=== PATIENT | female | born 1945 | race Caucasian/White ===

== ENCOUNTER → 2016-10-31 | Outpatient (CLI) | payer MEDICARE, OTHER | LOC: MW.CHFP 08:00 | CPT/HCPCS: G0463 ==

== ENCOUNTER 2016-11-19 09:05 | Emergency (ER) | payer MEDICARE, OTHER ==
[2016-11-19 09:16] VITALS: BP 177/89
[2016-11-19] MEDS ORDERED: Albuterol/Ipratropium 3.0-0.5 MG/3 ML Neb Soln NEB ONE (09:23)
--- NOTE | 2016-11-19 09:24 | EDM.PDOC ---
ED HISTORY OF PRESENT ILLNESS - General Chief Complaint: Respiratory Problem Stated Complaint: COLD Time Seen by Provider: 11/19/16 09:15 - History of Present Illness INITIAL COMMENTS - FREE TEXT/NARRATIVE: HISTORY AND PHYSICAL: History of present illness: The patient is a 73-year-old female who was a new diagnosis of breast cancer and is scheduled to get an MRI at [facility] to evaluate that for treatment and presents with complaints of a persistent cough for one month with "wheezing and congestion". The patient saw her primary care physician in our clinic as well as Dr. Adore Avelar of oncology on Monday and was given cough medicine from the latter provider.. No testing was performed and both providers felt that this was a viral syndrome. The patient states she is very frustrated with the cough is hacking and is not associated with fever chills abdominal pain vomiting or diarrhea. She has no leg pain or swelling and no cardiac or pulmonary history. She does not smoke cigarettes. Patient states she also has nasal congestion and nasal drip which triggers the cough. Patient tells me she would like some "antibiotics so she can get rid of this". Please note that Dr. Adore Avelar did not give her antibiotics on Monday. The patient did get her influenza vaccine this year Review of systems: As per history of present illness and below otherwise all systems reviewed and negative. Past medical history: As per history of present illness and as reviewed below otherwise noncontributory. Surgical history: As per history of present illness and as reviewed below otherwise noncontributory. Social history: No reported history of drug or alcohol abuse. Family history: As per history of present illness and as reviewed below otherwise noncontributory. Physical exam: General: Well-developed well-nourished female who is speaking clearly and not breathless. She does have a hacking dry cough heard in the ER. HEENT: Atraumatic, normocephalic, pupils reactive, negative for conjunctival pallor or scleral icterus, mucous membranes moist, throat clear, neck supple, nontender, trachea midline. Lungs: Clear to auscultation, breath sounds equal bilaterally, chest nontender. No stridor no wheezing no work of breathing with some diminished breath sounds and occasional rhonchi in the bases Heart: S1S2, regular, negative for clicks, rubs, or JVD. Abdomen: Soft, nondistended, nontender. NABS Genitourinary: Deferred. Rectal: Deferred. Extremities: Atraumatic, negative for cords or calf pain. Neurovascular unremarkable. No pedal edema Neuro: Awake, alert, oriented. Cranial nerves II through XII unremarkable. Cerebellum unremarkable. Motor and sensory unremarkable throughout. Exam nonfocal. Diagnostics: Chest x-ray CBC CMP Therapeutics: Duo neb spacer Patient states she feels a little better after the DuoNeb. Patient does tell me that she has a cough medicine at home Dr. Avelar gave her. She is aware of all testing results today and that she has no indication to receive antibiotics but I will give her an albuterol inhaler with a spacer Impression: Bronchitis with bronchospastic cough subacute Definitive disposition and diagnosis as appropriate pending reevaluation and review of above. - Related Data Allergies/ADRs: Allergies Allergy/AdvReac Type Severity Reaction Status Date / Time iodine Allergy Anaphylactic Verified 11/19/16 09:10 Shock lisinopril Allergy Cough Verified 11/19/16 09:10 olmesartan medoxomil Allergy Numbness Verified 11/19/16 09:10 [From Benicar] VOLITILE OILS Allergy Severe Anaphylactic Uncoded 11/19/16 09:10 Shock Home Meds: Home Meds Aspirin [Vanita Chewable] 81 mg PO DAILY 01/05/14 [History] Hydrochlorothiazide 25 mg PO DAILY 01/05/14 [History] amLODIPine/atorvaSTATin [Amlodipine-Atorvast 2.5-10 mg] 1 tab PO DAILY 01/05/14 [History] metFORMIN [metFORMIN XR] 500 mg PO DAILY 01/05/14 [History] Past Medical History HEENT History: Reports: None Cardiovascular History: Reports: Hypertension Respiratory History: Reports: None Gastrointestinal History: Reports: None Genitourinary History: Reports: None 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 Musculoskeletal History: Reports: None Neurological History: Reports: None Psychiatric History: Reports: None Endocrine/Metabolic History: Reports: Diabetes, type II Hematologic History: Reports: None Immunologic History: Reports: None Oncologic (Cancer) History: Reports: Breast Dermatologic History: Reports: None - Infectious Disease History Infectious Disease History: Reports: Chicken pox, Measles, Mumps - Past Surgical History HEENT Surgical History: Reports: Tonsillectomy Female Surgical History: Reports: Hysterectomy Social & Family History - Family History Family Medical History: Noncontributory - Tobacco Use Smoking Status *Q: Never Smoker - Caffeine Use Caffeine Use: Reports: Coffee, Soda - Alcohol Use Days Per Week of Alcohol Use: 0 - Recreational Drug Use Recreational Drug Use: No - Living Situation & Occupation Living situation: Reports: other (patient'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 ED EXAM, GENERAL - Physical Exam Exam: See Below (See dictation) Course - Vital Signs Last Recorded V/S: Last Vital Signs Temp 36.1 C 11/19/16 09:12 Pulse 87 11/19/16 09:12 Resp 18 11/19/16 09:12 BP 177/89 H 11/19/16 09:12 Pulse Ox 96 11/19/16 09:12 - Orders/Labs/Meds Orders: Active Orders 24 hr Category Date Time Status RT Aerosol Therapy [RC] ASDIRECTED Care 11/19/16 09:24 Active Chest 2V [CR] Stat Exams 11/19/16 09:24 Taken Labs: Laboratory Tests 11/19/16 11/19/16 Range/Units 09:37 09:37 WBC 8.12 (4.0-11.0) K/uL RBC 5.05 (4.30-5.90) M/uL Hgb 14.9 (12.0-16.0) g/dL Hct 42.9 (36.0-46.0) % MCV 85.0 (80.0-98.0) fL MCH 29.5 (27.0-32.0) pg MCHC 34.7 (31.0-37.0) g/dL RDW Std Deviation 41.3 (28.0-62.0) fl RDW Coeff of Randall 14 (11.0-15.0) % Plt Count 203 (150-400) K/uL MPV 11.00 (7.40-12.00) fL Neut % (Auto) 58.6 (48.0-80.0) % Lymph % (Auto) 22.9 (16.0-40.0) % Routt % (Auto) 15.5 H (0.0-15.0) % Eos % (Auto) 2.3 (0.0-7.0) % Baso % (Auto) 0.7 (0.0-1.5) % Neut # 4.8 (1.4-5.7) K/uL Lymph # 1.9 (0.6-2.4) K/uL Routt # 1.3 H (0.0-0.8) K/uL Eos # 0.2 (0.0-0.7) K/uL Baso # 0.1 (0.0-0.1) K/uL Nucleated RBC % 0.0 /100WBC Nucleated RBCs # 0 K/uL Sodium 139 (136-146) mmol/L Potassium 3.2 L (3.5-5.1) mmol/L Chloride 104 (98-110) mmol/L Carbon Dioxide 24 (21-31) mmol/L BUN 13 (6.0-23.0) mg/dL Creatinine 0.7 (0.6-1.5) mg/dL Est Cr Clr Drug Dosing 56.61 mL/min Estimated GFR (MDRD) > 60.0 ml/min Glucose 146 H (60-110) mg/dL Calcium 9.2 (8.8-10.8) mg/dL Total Bilirubin 0.5 (0.1-1.5) mg/dL AST 26 (5-40) IU/L ALT 31 (8-54) IU/L Alkaline Phosphatase 99 (40-150) Total Protein 7.0 (6.0-8.0) g/dL Albumin 3.7 (3.4-4.8) g/dL Globulin 3.3 (2.0-3.5) g/dL Albumin/Globulin Ratio 1.1 L (1.3-2.8) Meds: Medications Discontinued Medications Generic Name Dose Route Start Last Admin Trade Name Freq PRN Reason Stop Dose Admin Albuterol/Ipratropium 3 ml 11/19/16 09:23 11/19/16 09:29 Duoneb 3.0-0.5 Mg/3 Ml NEB 11/19/16 09:24 3 ml ONETIME ONE Administration Departure - Departure Time of Disposition: 10:28 Disposition: Home, Self-Care 01 Condition: good Clinical Impression: Bronchitis, Cough due to bronchospasm Forms: ED Department Discharge Additional Instructions: The following information is given to patients seen in the emergency department who are being discharged to home. This information is to outline your options for follow-up care. We provide all patients seen in our emergency department with a follow-up referral. The need for follow-up, as well as the timing and circumstances, are variable depending upon the specifics of your emergency department visit. If you don't have a primary care physician on staff, we will provide you with a referral. We always advise you to contact your personal physician following an emergency department visit to inform them of the circumstance of the visit and for follow-up with them and/or the need for any referrals to a consulting specialist. The emergency department will also refer you to a specialist when appropriate. This referral assures that you have the opportunity for followup care with a specialist. All of these measure are taken in an effort to provide you with optimal care, which includes your followup. Under all circumstances we always encourage you to contact your private physician who remains a resource for coordinating your care. When calling for followup care, please make the office aware that this follow-up is from your recent emergency room visit. If for any reason you are refused follow-up, please contact the [facility] emergency department at and ask to speak to the emergency department charge nurse. [facility] Primary care- [place] [address] Please continue to use the cough medicine you're given by Dr. Adore Avelar and use your inhaler with spacer given to today every 6 hours as needed. Push hydration and keep all followup appointments that you have scheduled. Return to ER as needed and as discussed - My Orders Last 24 Hours: My Active Orders 11/19/16 09:24 RT Aerosol Therapy [RC] ASDIRECTED Chest 2V [CR] Stat - Assessment/Plan Last 24 Hours: My Active Orders 11/19/16 09:24 RT Aerosol Therapy [RC] ASDIRECTED Chest 2V [CR] Stat
[2016-11-19 10:01] LABS: CHLORIDE,CL 104 mmol/L (98-110); SODIUM,NA 139 mmol/L (136-146)
--- NOTE | 2016-11-21 16:20 | CR ---
EXAM DATE: 11/19/16 PATIENT'S AGE: 71 Patient: S[place] REAL Facility: [place], [place] Site . Site : 1945 Study: XRay Chest [id number]/18/2017 9:47:36 AM Ordering Physician: Doctor Longoria Final Report: INDICATION: COUGH, SOB, COLD FOR 1 MONTH TECHNIQUE: PA and lateral chest films are submitted. COMPARISON: AP chest dated 12/27/2012. FINDINGS: Heart size and pulmonary vasculature within normal limits. Lung carpenter are clear. Mild spurring in the thoracolumbar spine. IMPRESSION: No active disease. Dictated by Jose Rafael Denise MD @ 11/19/2016 9:49:50 AM Dictated by: Jose Rafael Denise MD @ 11/19/2016 09:50:13 (Electronic Signature) Report Signed by Proxy and Original Signed Document filed in the Medical Record. [email or web address]
== END 2016-11-19 10:41 | disposition home or self-care (01) ==
LOC: MW.ED 09:05
DX: J40 Bronchitis, not specified as acute or chronic (principal); J98.01 Acute bronchospasm; I10 Essential (primary) hypertension; E11.9 Type 2 diabetes mellitus without complications; Z79.82 Long term (current) use of aspirin; Z79.899 Other long term (current) drug therapy; Z88.8 Allergy status to other drugs, medicaments and biological substances; Z91.018 Allergy to other foods; Z85.3 Personal history of malignant neoplasm of breast; Z90.710 Acquired absence of both cervix and uterus; Z98.890 Other specified postprocedural states
CPT/HCPCS: 36415; 71020; 71020-26; 80053; 85025; 94664; 99284; 99284-25

== ENCOUNTER 2017-01-10 20:20 | Emergency (ER) | payer MEDICARE, OTHER ==
--- NOTE | 2017-01-10 21:49 | EDM.PDOC ---
ED HPI GENERAL MEDICAL PROBLEM - General Chief Complaint: General Stated Complaint: PT HAS FLUID BUILD UP Time Seen by Provider: 01/10/17 21:40 - History of Present Illness INITIAL COMMENTS - FREE TEXT/NARRATIVE: HISTORY AND PHYSICAL: History of present illness: The patient is a 71-year-old female who had a history of breast cancer on the left side and had a total mastectomy with lymph node removal in [place] one month ago. She had a residual [place] drain in place and that was removed one week ago. She noticed and was concerned about maybe some reflection of fluid in the incision site and called her doctor who recommended that she come here for evaluation. She has had no systemic complaints of fever chills nausea vomiting chest pain or shortness of breath and has not had any drainage from the incision. There is no redness or pain at the incision Review of systems: As per history of present illness and below otherwise all systems reviewed and negative. Past medical history: As per history of present illness and as reviewed below otherwise noncontributory. Surgical history: As per history of present illness and as reviewed below otherwise noncontributory. Social history: No reported history of drug or alcohol abuse. Family history: As per history of present illness and as reviewed below otherwise noncontributory. Physical exam: : Well-developed well-nourished female who is nontoxic and vital signs are stable HEENT: Atraumatic, normocephalic, negative for conjunctival pallor or scleral icterus, mucous membranes moist, throat clear, neck supple, nontender, trachea midline. Lungs: Clear to auscultation, breath sounds equal bilaterally, chest nontender. No work or breathing or sensory muscle use. At the mastectomy scar area there is well-healed tissue there are and no erythema drainage or fluctuance. There is some residual soft tissue skin and fat appreciated at the axillary part of this incision but there is no gross fluid fluctuance or drainage appreciated. Heart: S1S2, regular, negative for clicks, rubs, or JVD. Abdomen: Soft, nondistended, nontender. NABS Genitourinary: Deferred. Rectal: Deferred. Extremities: Atraumatic, negative for cords or calf pain. Neurovascular unremarkable. Neuro: Awake, alert, oriented. Cranial nerves II through XII unremarkable. Cerebellum unremarkable. Motor and sensory unremarkable throughout. Exam nonfocal. Diagnostics: [] Therapeutics: [] Impression: Postop wound check Definitive disposition and diagnosis as appropriate pending reevaluation and review of above. Left Chest Pain Score (Numeric/FACES): 2 - Related Data Allergies Allergy/AdvReac Type Severity Reaction Status Date / Time iodine Allergy Anaphylactic Verified 11/19/16 09:10 Shock lisinopril Allergy Cough Verified 11/19/16 09:10 olmesartan medoxomil Allergy Numbness Verified 11/19/16 09:10 [From Benicar] VOLITILE OILS Allergy Severe Anaphylactic Uncoded 11/19/16 09:10 Shock Home Meds: Home Meds Aspirin [Vanita Chewable] 81 mg PO DAILY 01/05/14 [History] Hydrochlorothiazide 25 mg PO DAILY 01/05/14 [History] amLODIPine/atorvaSTATin [Amlodipine-Atorvast 2.5-10 mg] 1 tab PO DAILY 01/05/14 [History] metFORMIN [metFORMIN XR] 500 mg PO BID 01/05/14 [History] Potassium Gluconate [Potassium] 0.5 mg PO 01/10/17 [History] Ubiquinol/B12/FA/Resveratrol [Co-Balamin Capsule] 1 each PO 01/10/17 [History] Past Medical History HEENT History: Reports: None Cardiovascular History: Reports: Hypertension Respiratory History: Reports: None Gastrointestinal History: Reports: None Genitourinary History: Reports: None RN GYN History: Reports: None Musculoskeletal History: Reports: None Neurological History: Reports: None Psychiatric History: Reports: None Endocrine/Metabolic History: Reports: Diabetes, type II Hematologic History: Reports: None Immunologic History: Reports: None Oncologic (Cancer) History: Reports: Breast Dermatologic History: Reports: None - Infectious Disease History Infectious Disease History: Reports: Chicken pox, Measles, Mumps - Past Surgical History HEENT Surgical History: Reports: Tonsillectomy Female Surgical History: Reports: Hysterectomy Oncologic Surgical History: Reports: Mastectomy Social & Family History - Family History Family Medical History: Noncontributory - Tobacco Use Smoking Status *Q: Never Smoker - Caffeine Use Caffeine Use: Reports: Coffee - Alcohol Use Days Per Week of Alcohol Use: 0 - Recreational Drug Use Recreational Drug Use: No - Living Situation & Occupation Living situation: Reports: other (patient'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 ED EXAM, GENERAL - Physical Exam Exam: See Below (see dictation) Course - Vital Signs Last Recorded V/S: Last Vital Signs Temp 36.2 C 01/10/17 20:50 Pulse 91 01/10/17 20:50 Resp 16 01/10/17 20:50 BP 188/75 H 01/10/17 20:50 Pulse Ox 95 01/10/17 20:50 Departure - Departure Time of Disposition: 21:48 Disposition: Home, Self-Care 01 Condition: good Clinical Impression: Encounter for evaluation of wound - Discharge Information Forms: ED Department Discharge Additional Instructions: The following information is given to patients seen in the emergency department who are being discharged to home. This information is to outline your options for follow-up care. We provide all patients seen in our emergency department with a follow-up referral. The need for follow-up, as well as the timing and circumstances, are variable depending upon the specifics of your emergency department visit. If you don't have a primary care physician on staff, we will provide you with a referral. We always advise you to contact your personal physician following an emergency department visit to inform them of the circumstance of the visit and for follow-up with them and/or the need for any referrals to a consulting specialist. The emergency department will also refer you to a specialist when appropriate. This referral assures that you have the opportunity for followup care with a specialist. All of these measure are taken in an effort to provide you with optimal care, which includes your followup. Under all circumstances we always encourage you to contact your private physician who remains a resource for coordinating your care. When calling for followup care, please make the office aware that this follow-up is from your recent emergency room visit. If for any reason you are refused follow-up, please contact the [facility] emergency department at and ask to speak to the emergency department charge nurse. [facility] Primary care- Internal Medicine and Family [address] [address] Please contact her surgeon in [place] for any problems and also followup with primary care. Return to ER as needed and as discussed
[2017-01-10 22:12] VITALS: BP 179/84
== END 2017-01-10 22:00 | disposition home or self-care (01) ==
LOC: MW.ED 20:20
DX: Z48.01 Encounter for change or removal of surgical wound dressing (principal); I10 Essential (primary) hypertension; E11.9 Type 2 diabetes mellitus without complications; Z85.3 Personal history of malignant neoplasm of breast; Z79.82 Long term (current) use of aspirin; Z79.899 Other long term (current) drug therapy; Z90.10 Acquired absence of unspecified breast and nipple; Z90.710 Acquired absence of both cervix and uterus; Z98.890 Other specified postprocedural states; Z88.8 Allergy status to other drugs, medicaments and biological substances; Z91.048 Other nonmedicinal substance allergy status
CPT/HCPCS: 99281; 99283